=== PATIENT | female | born 1980 | race Caucasian/White ===

== ENCOUNTER → 2024-11-29 16:12 | Outpatient (REF) | payer OTHER, SELFPAY | LOC: DHSLP 16:12 | PROVIDERS: ATTENDING PHYSICIAN Internal Medicine; FAMILY PHYSICIAN Nurse Practitioner Family | DX: G47.30 Sleep apnea, unspecified (principal); R06.83 Snoring | CPT/HCPCS: 95800 ==

== ENCOUNTER 2025-08-10 12:42 | Emergency (ER) | payer OTHER, SELFPAY ==
[2025-08-10 12:51] VITALS: BP 116/76
[2025-08-10 13:14] LABS: Hematocrit 36.7 % (37.0-47.0); Hemoglobin 12.5 g/dL (12.0-16.0); Mean Corp Hgb Conc. 34.1 g/dL (33.0-37.0); Mean Corpuscular Volume 93.6 fL (81.0-99.0); Nucleated Red Blood Cells % 0 %; Platelet Count 221 10^3/uL (130-400); Red Cell Dist. Width 12.6 % (11.5-14.5)
[2025-08-10 13:27] LABS: HCG, Serum Qualitative Screen Negative
[2025-08-10 13:29] LABS: ALT (SGPT) 16 U/L (0-35); AST (SGOT) 19 U/L (14-36); Albumin 4.4 g/dl (3.5-5.0); Alkaline Phosphatase 50 U/L (38-126); Blood Urea Nitrogen 22 mg/dl (7-17); Calcium 9.5 mg/dl (8.4-10.2); Carbon Dioxide 30 mmol/L (22-30); Chloride 104 mmol/L (98-107); Glucose 89 mg/dl (70-99); Potassium 5.2 mmol/L (3.5-5.1); Sodium 136 mmol/L (135-145); Total Protein 6.9 g/dl (6.3-8.2); eGFR > 60.00
[2025-08-10 16:07] VITALS: BP 116/73
[2025-08-10 16:10] VITALS: BMI 17.6
[2025-08-10 16:19] LABS: Urine Character Clear (Clear)
[2025-08-10 16:29] LABS: Urine Squamous Cell >30 /LPF (Few)
[2025-08-10 16:30] LABS: Urine Red Blood Cell 0-2 /HPF (0-2); Urine White Cell 0-2 /HPF (0-5)
--- NOTE | 2025-08-10 16:46 | ED.GENMED ---
History of Present Illness
<Fiordaliza Gipson MD, Resident - Last Filed: 08/10/25 18:55>
General
Chief Complaint: Abdominal Pain
Source: patient
Time Seen by Provider: 08/10/25 16:29
History of Present Illness
History of Present Illness:
Patient is a 45-year-old female with past medical history significant for bipolar disorder, recently restarted her lithium about 2 months ago along with low-dose Prozac, who is here for evaluation for abdominal pain and left lower quadrant and
diarrhea from last 3 weeks.
She was vegan for a while and was recently resuming fish and dairy in her diet, a week ago she ate some undercooked fish and then a week later she developed the symptoms. Her primary care physician did stool test that came back negative for any
parasite and fecal fat was negative as well. She on average has 3-5 episodes of soft stools each day, sometimes there are watery episodes as well. Denies any blood or mucus in stool, any fever, chills, nausea, vomiting or any other issues.
She is here for evaluation for possible diverticulitis/colitis.
Past History
<Fiordaliza Gipson MD, Resident - Last Filed: 08/10/25 18:55>
Past History
ED Past Medical History: None
ED Past Surgical History: None
Social History
Tobacco: Non-smoker
Review of Systems
<Fiordaliza Gipson MD, Resident - Last Filed: 08/10/25 18:55>
Review of Systems
All Other Systems: ROS reviewed and negative except as documented in HPI and ROS
Phy Exam
<Fiordaliza Gipson MD, Resident - Last Filed: 08/10/25 18:55>
General Physical Exam
General Presentation: well appearing and no apparent distress
General age: appears stated age
General Skin: warm and dry
General Habitus: normal
General Mental: alert
General Hydration: appears well hydrated
Cardiovascular Exam
Cardiovascular Exam: regular rate/rhythm, no edema, no gallop, no murmur and normal peripheral pulses
Pulmonary Exam
Pulmonary Exam: lungs clear, no respiratory distress, no rales, no crackles and no rhonchi
Gastrointestinal Exam
Gastrointestinal Exam: normal bowel sounds, non tender and soft
Neurological Exam
Neurological Exam: alert, oriented x3, no motor deficits and no sensory deficits
Musculoskeletal Exam
Musculoskeletal Exam: full ROM
Skin Exam
Skin Exam: normal color and warm/dry
Psychiatric Exam
Psychiatric Exam: normal mood/affect
Course
<Fiordaliza Gipson MD, Resident - Last Filed: 08/10/25 18:55>
Orders/Labs/Results
Orders:
Orders
08/10/25 12:55
Test Result ONCE
08/10/25 13:00
Complete Blood Count/With Diff Urgent
Comprehensive Metabolic Panel Urgent
HCG, Serum Qualitative Screen Urgent
Lactic Acid Urgent
08/10/25 16:11
Urinalysis Reflex To Culture Urgent
Date Specimen was Collected: 08/10/25
Time Specimen was Collected: 16:10
Urine Microscopic Reflex Cult Urgent
Urine Culture Urgent
SHAMIKA Source: U
Specimen Description:
Date Specimen was Collected: 08/10/25
Time Specimen was Collected: 16:10
08/10/25 16:51
CT Abd/pelvis W Iv Cont Urgent
Comment:
Reason For Exam: diverticulitis
08/10/25 18:36
Magnesium Citrate [Citroma] 300 ml .ROUTE .STK-MED ONE
08/10/25 18:37
Magnesium Citrate [Citroma] 300 ml PO ONCE ONE
Abnormal Lab Results
08/10/25 08/10/25
13:00 16:11
RBC 3.92 L 10^6/uL
(4.20-5.40)
Hct 36.7 L %
(37.0-47.0)
MCH 31.9 H pg
(27.0-31.0)
Absolute Lymphs (auto) 1.1 L 10^3/uL
(1.2-3.4)
Neutrophils % 75.8 H %
(42.2-75.2)
Lymphocytes % 14.5 L %
(20.5-51.1)
Potassium 5.2 H mmol/L
(3.5-5.1)
BUN 22 H mg/dl
(7-17)
Ur Occult Blood Reflex 2+ A
(Negative)
Urine Bacteria (Reflex) Moderate A
(Negative)
08/10/25 16:51
08/10/25 16:52
Vital Signs
Initial and Last Documented VS:
Initial Vital Signs
Temp Pulse Resp BP Pulse Ox
97.9 F 83 18 116/76 99
08/10/25 12:51 08/10/25 12:51 08/10/25 12:51 08/10/25 12:51 08/10/25 12:51
Last Documented Vital Signs
Temp Pulse Resp BP Pulse Ox
97.9 F 83 18 115/62 99
08/10/25 12:51 08/10/25 12:51 08/10/25 12:51 08/10/25 18:00 08/10/25 18:30
<Baltazar Sumner, DO - Last Filed: 08/10/25 18:34>
Orders/Labs/Results
Orders:
Orders
08/10/25 12:55
Test Result ONCE
08/10/25 13:00
Complete Blood Count/With Diff Urgent
Comprehensive Metabolic Panel Urgent
HCG, Serum Qualitative Screen Urgent
Lactic Acid Urgent
08/10/25 16:11
Urinalysis Reflex To Culture Urgent
Date Specimen was Collected: 08/10/25
Time Specimen was Collected: 16:10
Urine Microscopic Reflex Cult Urgent
Urine Culture Urgent
SHAMIKA Source: U
Specimen Description:
Date Specimen was Collected: 08/10/25
Time Specimen was Collected: 16:10
08/10/25 16:51
CT Abd/pelvis W Iv Cont Urgent
Comment:
Reason For Exam: diverticulitis
08/10/25 18:36
Magnesium Citrate [Citroma] 300 ml .ROUTE .STK-MED ONE
08/10/25 18:37
Magnesium Citrate [Citroma] 300 ml PO ONCE ONE
Abnormal Lab Results
08/10/25 08/10/25
13:00 16:11
RBC 3.92 L 10^6/uL
(4.20-5.40)
Hct 36.7 L %
(37.0-47.0)
MCH 31.9 H pg
(27.0-31.0)
Absolute Lymphs (auto) 1.1 L 10^3/uL
(1.2-3.4)
Neutrophils % 75.8 H %
(42.2-75.2)
Lymphocytes % 14.5 L %
(20.5-51.1)
Potassium 5.2 H mmol/L
(3.5-5.1)
BUN 22 H mg/dl
(7-17)
Ur Occult Blood Reflex 2+ A
(Negative)
Urine Bacteria (Reflex) Moderate A
(Negative)
08/10/25 16:51
08/10/25 16:52
Vital Signs
Initial and Last Documented VS:
Initial Vital Signs
Temp Pulse Resp BP Pulse Ox
97.9 F 83 18 116/76 99
08/10/25 12:51 08/10/25 12:51 08/10/25 12:51 08/10/25 12:51 08/10/25 12:51
Last Documented Vital Signs
Temp Pulse Resp BP Pulse Ox
97.9 F 83 18 115/62 99
08/10/25 12:51 08/10/25 12:51 08/10/25 12:51 08/10/25 18:00 08/10/25 18:30
<Fiordaliza Gipson MD, Resident - Last Filed: 08/10/25 18:55>
MDM/Problems Addressed
Differential Diagnosis Includes:
Infectious colitis
Diverticulitis
While gastroenteritis
Lactose intolerance
Overflow diarrhea
MDM/Problems Addressed:
CBC and CMP with no abnormal findings
CT abdomen/pelvis done-findings consistent with moderate stool burden, no signs of colitis or diverticulitis
She had extensive workup done by her primary care physician already with stool studies and parasite smear. Everything was negative
It appears to be an overflow diarrhea secondary to constipation given the change in dietary habits of the patient-advised the patient to use high-fiber diet and a bowel regimen.
Discharge instructions provided
Discharge and follow-up with primary care physician
<Fiordalzia Gipson MD, Resident - Last Filed: 08/10/25 18:55>
*Pulse Oximetry
SaO2: 100
Oxygen Mode of Delivery: Room air
<Baltazar Sumner, DO - Last Filed: 08/10/25 18:34>
*Radiology
Radiology exam reviewed: radiology read reviewed
*Pulse Oximetry
Patient hypoxic: no
*Critical Care Note
Total Time (30-74mins, 75-104mins- exclusive of procedures): Not Applicable
ED Attending Note
<Fiordaliza Gipson MD, Resident - Last Filed: 08/10/25 18:55>
-
Portions of this chart may have been created with voice recognition software.� Occasional wrong word or��sound alike� substitutions may have occurred due to the inherent limitations of voice recognition software.
<Baltazar Sumner, DO - Last Filed: 08/10/25 18:34>
ED Attending Note
Patient seen and examined by attending physician: Yes
I performed a history and physical exam of patient and discussed management with resident, I reviewed resident's note and agree with documented findings and plan of care.: Yes
ED Attending Note:
Seen with resident examined independently 45-year-old female vegan recently switched over to eating some fish which was undercooked developed some loose stools was using coffee enemas which she stopped, various dietary changes from some outpatient
practitioners, here she looks well for labs noted CT noted will start on a stool regimen
Discharge Plan
Departure
Patient Disposition: Home (Routine Discharge)
Date of Disposition: 08/10/25
Time of Disposition: 18:28
Patient with high blood pressure during this ER visit?: No
Discharge Problem:
Constipation, Overflow diarrhea
Instructions: Constipation in adults - ED (DC)
Prescriptions:
New
polyethylene glycol 3350 [Miralax] 17 gram powder in packet
17 g PO DAILY Qty: 14 0RF
magnesium citrate [Citroma] Solution
150 ml PO DAILY PRN (Reason: Constipation) Qty: 296 0RF
Referrals:
Cheryl Garduno CRNP [Family Provider, Family Practice]
Activity Restrictions/Additional Instructions:
INCREASE INTAKE OF FIBER AND FLUIDS IN YOUR DIET
YOU CAN USE OTC MAGNESIUM CITRATE AND MIRALAX
IN CASE IF DIARRHEA REDUCE THE DOSE OF LAXATIVE NEEDED
MAGNESIUM CITRATE SHOULD NOT BE USED DAILY
BENAFIBER OTC ON DAILY BASIS ONCE CONSTIPATION RESOLVES
Interventions
Interventions:
*Risk Screen - Suicide Last Done: 08/10/25 12:51
*General Assessment Last Done: 08/10/25 12:51
*Neglect/Abuse Screening Last Done: 08/10/25 12:51
*ED- Fall Risk Assessment Last Done: 08/10/25 16:10
*ED COVID-19 Vaccine History Last Done: 08/10/25 16:10
*ED Influenza Vaccine History Last Done: 08/10/25 16:10
*Nursing Disposition Last Done: 08/10/25 18:42
JL-Uvglur-Ltxxeaxoxi Assessment Last Done: 08/10/25 16:17
Discharge Date and Time
Discharge Date/Time: 08/10/25 18:43
Print Language: MALTESE
[2025-08-10 17:00] VITALS: BP 122/109
[2025-08-10 17:48] VITALS: BP 119/63
[2025-08-10 18:00] VITALS: BP 115/62
[2025-08-10] MEDS: CITROMA 300 ML PO (18:37)
== END 2025-08-10 18:43 | disposition home or self-care (01) ==
LOC: EMR 12:42
PROVIDERS: Emergency Medicine; EMERGENCY PHYSICIAN Emergency Medicine; FAMILY PHYSICIAN Nurse Practitioner Family
DX: K59.00 Constipation, unspecified (principal); R19.7 Diarrhea, unspecified; F31.9 Bipolar disorder, unspecified
CPT/HCPCS: 99284; 74177; 80053; 81003; 81015; 83605; 84703; 85025; 87086; Q9967